=== PATIENT | male | born 1960 | race Caucasian/White ===

== ENCOUNTER 2018-05-04 13:57 | Emergency (ER) | payer OTHER ==
[~2018-05-04] VITALS: Ht 170.2 cm; Wt 75.0 kg
[~2018-05-04 13:57] MED LIST: ALBU3IS INH; ALBU90OI INH; ALBU90OI6 INH; ALBU90OI61 INH; ALPR.5 PO; AMLO10 PO; ASPI325 PO; ASPI325EC PO; ATEN50 PO; ATOR20 PO; AVODART; AZAR; AZIT250 PO; BP MED; CEPH500 PO; CLON.1 PO; CLON.2 PO; CLON.3 PO; CLON.5 PO; CLOP75 PO; COMBIVENT; CYCL10 PO; DOXY100 PO; DULERA 100 MCG/13 GM INH; DULO60 PO; DUTA.5 PO; EZET10 PO; FAMO20 PO; FLUSAL2505 IH; FLUSAL5005 IH; FLUTICASONE PROPIONATE; FURO20 PO; FURO40 PO; FURO80 PO; HYDACE10B PO; HYDACE5 PO; HYDACE5325 PO; HYDCHL25 PO; HYDRA50 PO; INSDET100; INSDET100 SC; INSR10I SC; INSUASPI SC; INSUL100I; INSULANI SC; LANTUS INSULIN; LASIX; LIPITOR; LISI20 PO; LISI5 PO; LISINOPRIL; METF500 PO; METFORMIN; METO100ER PO; METO25ER PO; METO50 PO; Milk Of Ma400 MG/5 M PO; NITR.6SL SL; NYST100P TOP; Novolog Fl100 UNIT/1 SQ; OMEP20ER PO; ONDA4ODT MM; OXYACE5T PO; POTA10T PO; POTASSIUM; POTCHL20ER PO; PRED20 PO; RANI150 PO; REGULAR INSULIN; SALMETEROL; SERT50 PO; SPIR25 PO; SUCR1 PO; TAMS.4ER PO; TAMSULOSIN; TELM20; TELM80/12.5 PO; TORSE20 PO; TRAM50 PO; UNK INHALER; VALTURNA; VENTOLIN HFA INHALER; ZETIA
[2018-05-04 14:22] LABS: BASOPHILS ABSOLUTE AUTO 0.15 K/mm3 (0.00-0.23); BASOPHILS PERCENT AUTO 1 % (0-2); EOSINOPHILS ABSOLUTE AUTO 0.18 K/mm3 (0.00-0.68); EOSINOPHILS PERCENT AUTO 1 % (0-6); Hematocrit 39.2 % (37.0-53.0); Hemoglobin 12.4 g/dL (13.5-17.5); IMMATURE GRAN ABSOLUTE AUTO 0.11 K/mm3 (0.00-0.10); IMMATURE GRAN PERCENT AUTO 1 % (0-1); LYMPHOCYTES ABSOLUTE AUTO 1.28 K/mm3 (0.84-5.20); LYMPHOCYTES PERCENT AUTO 8 % (21-46); MONOCYTES ABSOLUTE AUTO 0.61 K/mm3 (0.16-1.47); MONOCYTES PERCENT AUTO 4 % (4-13); Mean Corpuscular HGB 28.2 pg (26.0-34.0); Mean Corpuscular HGB Conc 31.6 g/dL (31.5-36.5); Mean Corpuscular Volume 89 fL (80-100); Mean Platelet Volume 9.3 fL (9.1-12.4); NEUTROPHILS ABSOLUTE AUTO 14.55 K/mm3 (1.96-9.15); NEUTROPHILS PERCENT AUTO 86 % (41-73); Platelet Count 344 K/mm3 (150-400); RDW Coefficient Variation 14.4 % (11.7-14.2); RDW Standard Deviation 47.2 fL (35.1-46.3); White Blood Cell Count 16.88 K/mm3 (4.00-11.30)
[2018-05-04 14:33] LABS: International Normalized Ratio 0.98; Prothrombin Time Results 10.1 Sec (9.7-11.5)
[2018-05-04 14:39] LABS: PCO2 Arterial 57.1 mmHg (35-45); PO2 Arterial 230 mmHg (80-100)
[2018-05-04 14:40] LABS: pH Blood Arterial 7.24 (7.35-7.45)
[2018-05-04 14:43] LABS: Alanine Aminotransfer (ALT/SGP 16 U/L (12-78); Albumin, Blood 3.3 g/dL (3.4-5.0); Albumin/Globulin Ratio 0.8 (0.8-1.8); Alk Phos 126 U/L (50-136); Anion Gap 13 mmol/L (6-16); Aspartate Aminotrans (AST/SGOT 16 U/L (12-37); Bilirubin, Total 0.4 mg/dL (0.1-1.0); Blood Urea Nitrogen 41 mg/dL (8-24); Bun/Creatinine Ratio 8.9 (12.0-20.0); CO2, Blood 23 mmol/L (21-32); Calcium, Blood 8.1 mg/dL (8.5-10.1); Chloride, Blood 105 mmol/L (98-108); Creatinine, Blood 4.59 mg/dL (0.60-1.20); Ethanol (Alcohol), Blood, Med <3 mg/dL; Globulin, Blood 3.9 g/dL (2.2-4.0); Glomerular Filtration Rate 14 (60-); Glucose, Blood 201 mg/dL (70-99); Potassium, Blood 3.6 mmol/L (3.5-5.5); Sodium, Blood 141 mmol/L (136-145); Total Protein, Blood 7.2 g/dL (6.4-8.2)
== END 2018-05-04 18:27 | disposition short-term general hospital (02) ==
LOC: ER 13:57
PROVIDERS: Emergency Medicine
DX: S06.349A Traumatic hemorrhage of right cerebrum with loss of consciousness of unspecified duration, initial encounter (principal); I16.0 Hypertensive urgency; R56.9 Unspecified convulsions; N17.9 Acute kidney failure, unspecified; N18.9 Chronic kidney disease, unspecified; J96.90 Respiratory failure, unspecified, unspecified whether with hypoxia or hypercapnia; E11.22 Type 2 diabetes mellitus with diabetic chronic kidney disease; I25.2 Old myocardial infarction; J44.9 Chronic obstructive pulmonary disease, unspecified; E66.01 Morbid (severe) obesity due to excess calories; F17.200 Nicotine dependence, unspecified, uncomplicated; Z88.0 Allergy status to penicillin; Z88.5 Allergy status to narcotic agent; Z79.899 Other long term (current) drug therapy; Z79.82 Long term (current) use of aspirin; Z79.4 Long term (current) use of insulin; Z68.25 Body mass index [BMI] 25.0-25.9, adult; X58.XXXA Exposure to other specified factors, initial encounter
CPT/HCPCS: 31500; 31720; 36415; 36600; 51702; 70450; 80053; 81000; 82803; 82947; 83605; 85025; 85610; 93005; 93010; 94002; 96365; 96375; 99291; 99292; G0480; J2060; J2560; J7030; J7050; Q2009